=== PATIENT | female | born 1985 | race American Indian/Alaskan Native ===

== ENCOUNTER 2017-01-13 05:53 | Day surgery (SDC) | payer MEDICAID ==
--- NOTE | 2017-01-13 07:35 | Anesthesia Consultation ---
Anesthesia Consult and Med Hx Date of service: 01/13/17 - Airway Anesthetic Teeth Evaluation: Good ROM Head & Neck: Adequate Mental/Hyoid Distance: Adequate Mallampati Class: Class II Intubation Access Assessment: Probably Good - Pulmonary Exam CTA: Yes - Cardiac Exam Cardiac Exam: RRR - Pre-Operative Health Status ASA Pre-Surgery Classification: ASA3 Proposed Anesthetic Plan: MAC - Pulmonary Hx Smoking: Yes (1/2 ppd since 15yo, quitted last month) - Cardiovascular System Hx Hypertension: No - Hematic Hx Sickle Cell Disease: Yes (SST) - Other Systems Hx Obesity: Yes - Additional Comments Anesthesia Medical History Comments: NAC
--- NOTE | 2017-01-13 07:36 | Anesthesia Day of Surgery ---
Anesthesia Day of Surgery - Day of Surgery Patient Examined: Yes Patient H&P Reviewed: Yes Patient is NPO: Yes
[2017-01-13] MEDS ORDERED: DIPRIVAN 10 MG/ML IV ONE (07:41)
--- NOTE | 2017-01-13 07:59 | Discharge Summary ---
Providers - Providers Attending physician: TAURUS COFFMAN Primary care physician: YEISON HICKMAN Hospitalization Procedures: egd Hospital course: 31 y.o. F presented to endoscopy for EGD for eval for upcoming bariatric surgery. Pt tolerated the procedure well. Disposition: DC-01 TO HOME OR SELFCARE Core Measure Documentation - Palliative Care Palliative Care/ Comfort Measures: Not Applicable - Core Measures Any of the following diagnoses?: none Exam - Physical Exam Narrative exam: no change from prior - Constitutional Vitals: Temp Pulse Resp BP Pulse Ox 97.7 F 77 20 125/81 99 01/13/17 07:39 01/13/17 07:39 01/13/17 07:39 01/13/17 07:39 01/13/17 07:39 Plan Activity: no restrictions Additional Instructions: follow up for surgery Follow up with: YEISON HICKMAN MD [Primary Care Provider] - 7 Days
[2017-01-13] MEDS ORDERED: NACL 0.9% 1000 ML 1,000 ML IV SCH (08:00)
--- NOTE | 2017-01-13 08:02 | Operative Report ---
Operative Report Operative Report: OPERATIVE REPORT - EGD DATE 01/13/17 SURGERY: Upper endoscopy. SURGEON: Dr. Soler [employer] REPRESENTATIVE: Laisha Weber DO PRE OP DX: dyspepsia POST OP DX: same hiatal hernia TYPE OF ANESTHESIA: MAC. ESTIMATED BLOOD LOSS: None. COMPLICATIONS: None. SPECIMENS REMOVED: None. FINDINGS: 1. Small hiatal hernia. 2. Otherwise, normal esophagus, stomach and first portion of duodenum. INDICATIONS:INDICATION FOR PROCEDURE: Patient is a 31-year-old female with a long history of morbid obesity. She is planned to have a weight loss procedure and is here for preoperative planning EGD to assess the anatomy of her stomach. She will also be evaluated for her dyspepsia. PROCEDURE DETAILS: After consent was reviewed, patient was taken back to the operating room where patient was placed in the left lateral decubitus position and a bite block was placed in the mouth. After a time-out was called, MAC anesthesia was initiated. I then passed the endoscope into her oropharynx, into her esophagus, visualized the entire esophagus, which was all within normal limits. I then visualized the stomach and the first portion of the duodenum and there were no abnormalities I could clearly visualize. I then retroflexed the scope in the stomach and visualized the hiatus and I could see a small hiatal hernia. I then desufflated the stomach and removed the endoscope. Patient tolerated procedure well and was transferred to recovery room in good and stable condition.
[2017-01-13 08:33] VITALS: BP 138/79
[2017-01-13] MEDS ORDERED: WATER FOR IRRIG STERILE IR ONE (08:40)
--- NOTE | 2017-01-13 10:51 | Post Anesthesia Evaluation ---
- Post Anesthesia Evaluation Patient Participated: Yes Airway Patent: Yes Stable Respiratory Function: Yes Nausea/Vomiting: No Temp > 96.8F: Yes Pain Manageable: Yes Adequeate Hydration: Yes Anesthesia Complications: No Block Receding Appropriately: Not Applicable Patient on Ventilator: No
== END 2017-01-13 05:54 | disposition home or self-care (01) ==
LOC: GIO 05:53
PROVIDERS: ATTEND Specialist
DX: K30 Functional dyspepsia (principal); K44.9 Diaphragmatic hernia without obstruction or gangrene; I10 Essential (primary) hypertension; E66.01 Morbid (severe) obesity due to excess calories; Z68.43 Body mass index [BMI] 50.0-59.9, adult; Z90.49 Acquired absence of other specified parts of digestive tract; Z98.890 Other specified postprocedural states
CPT/HCPCS: 43235; 81025; J2704; J7030